=== PATIENT | female | born 1950 | race Caucasian/White ===

== ENCOUNTER 2023-02-06 10:38 | Emergency (ER) | payer MEDICARE, SELFPAY ==
[2023-02-06 10:39] VITALS: BP 191/81; PULSE 101; RESP 18; TEMP 35.9; O2SAT 97; BMI 27.1
--- NOTE | 2023-02-06 10:56 | EKG12_ITS ---
Test Reason : Blood Pressure : / mmHG Vent. Rate : 080 BPM Atrial Rate : 080 BPM P-R Int : 142 ms QRS Dur : 072 ms QT Int : 356 ms P-R-T Axes : 060 054 055 degrees QTc Int : 410 ms Normal sinus rhythm Normal ECG Confirmed by HADLEY WILLINGHAM, ADIN ([id number]), technical editor ANTONIO OSORIO ([id number]) on 02/08/2023 8:09:42 AM Referred By: PATRICIA Confirmed By:ADIN BUTCHER MD
--- NOTE | 2023-02-06 10:56 | RAD_ITS ---
EXAM: XR CHEST, 1 VIEW CLINICAL INDICATION: chest pain TECHNIQUE: Frontal view of the chest. COMPARISON: No relevant prior studies available. FINDINGS: LUNGS AND PLEURAL SPACES: Unremarkable. No consolidation or edema. No pneumothorax. No effusion. HEART: Unremarkable. Cardiac silhouette not enlarged. MEDIASTINUM: Central airways and mediastinal contour are unremarkable. BONES/JOINTS: Unremarkable. SOFT TISSUES: Unremarkable. RAD/Chest 1 View (Portable) IMPRESSION: No radiographic evidence of acute cardiopulmonary disease. Electronically Signed: Reji Joy MD at 12:43 EDT ,
[2023-02-06 10:57] VITALS: BP 167/71; PULSE 85; RESP 16; O2SAT 99
--- NOTE | 2023-02-06 10:58 | EDS_ITS ---
HPI History of Present Illness Chief Complaint: Chest Pain Narrative Narrative: Patient is a 72-year-old female who is presenting to the ER today with chief complaint of chest pain. Patient's chest pain started at 6 AM. Patient is having seconds of a twinge in her right aspect of her left breast above her left ribs. Patient states this has been having intermittently through the morning. Patient was at denominational and was happening again. Patient was brought to the ER by another churchgoer/friend. Patient has no cardiac history. Patient takes Actonel once a week and a statin daily, otherwise has no cardiac history, no diabetes. HEART score 3 for age and cholesterol PFSH PFSH Allergy/AdvReac Type Severity Reaction Status Date / Time latex Allergy Rash Verified 02/06/23 10:41 Iodinated Contrast Media AdvReac Other Verified 02/06/23 10:41 Social History Smoking Status: Never smoker ROS ROS ED ROS Narrative REVIEW OF SYSTEMS: Unless otherwise stated in this report the patient's positive and negative responses for review of systems for constitutional, eyes, ENT, cardiovascular, respiratory, gastrointestinal, neurological, , musculoskeletal, and integument systems and related systems to the presenting problem are either stated in the history of present illness or were not pertinent or were negative for the symptoms and/or complaints related to the presenting medical problem. EXAM Physical Exam Narrative Exam Narrative: Vital signs reviewed and patient is not hypoxic. General: The patient appears well and in no apparent distress. Patient is resting comfortably on cart. Not toxic, lethargic, or listless. Skin: Warm, dry, no pallor noted. There is no rash noted. Head: Normocephalic, atraumatic Eye: Normal conjunctiva, no drainage, EOMI. PERRL. Ears, Nose, Mouth, and Throat: oral mucosa is moist. Nares patent. Mouth without vesicles. Ear canals patent. Tm's without Erythema Cardiovascular: Regular Rate and Rhythm, no murmurs, gallops, or rubs. Patient has reproducible tenderness palpation underneath the left breast on the anterior left lower anterior chest wall, no rash. Patient also has some discomfort to the soft tissue of the posterior underneath aspect of the left breast, no mass palpated in the left breast. Respiratory: Patient is in no distress, no accessory muscle use, lungs are clear to auscultation, no wheezing, rales or rhonchi Back: non-tender, no CVA tenderness bilaterally to percussion. NO CTLS midline or paracervical tenderness to palpation. GI: Soft, no tenderness to palpation, no masses appreciated. No rebound, guarding, or rigidity noted. Musculoskeletal: The patient has full range of motion of all extremities and joints with no difficulty. Patient has no motor, no sensory deficits. Neurological: A&O x4, normal speech, no focal neurological deficits. Psychiatric: Cooperative Const Vital Signs: 02/06/23 10:39 02/06/23 10:57 02/06/23 10:57 Temperature 96.7 F L Temperature Source Temporal Pulse Rate 101 H 85 Respiratory Rate 18 16 Respiratory Effort Normal Blood Pressure 191/81 H 167/71 H Blood Pressure Mean 117 103 Pulse Ox 97 99 Oxygen Delivery Method Room Air Room Air 02/06/23 10:59 02/06/23 11:39 02/06/23 12:00 Temperature Temperature Source Pulse Rate 77 67 Respiratory Rate 18 16 Respiratory Effort Blood Pressure 151/76 H 134/78 H Blood Pressure Mean 101 96 Pulse Ox 97 100 Oxygen Delivery Method Room Air Room Air Room Air [facility] MDM Lab Data Attestation: I reviewed the patient's lab results. Labs: Laboratory Results - last 24 hr 02/06/23 02/06/23 02/06/23 11:26 11:26 12:53 WBC 5.0 RBC 4.25 Hgb 12.5 Hct 38.2 MCV 89.9 MCH 29.4 MCHC 32.7 RDW Std Deviation 42.3 RDW Coeff of Suresh 12.9 Plt Count 201 MPV 9.1 Immature Gran % (Auto) 0.200 Neut % (Auto) 58.2 Lymph % (Auto) 28.8 Bland % (Auto) 10.8 H Eos % (Auto) 1.8 Baso % (Auto) 0.2 Absolute Neuts (auto) 2.9 Absolute Lymphs (auto) 1.44 Nucleated RBC % 0 Sodium 139 Potassium 3.9 Chloride 108 H Carbon Dioxide 26.0 Anion Gap 5 BUN 15 Creatinine 0.75 Estim Creat Clear Calc 38.94 Est GFR (MDRD) Af Amer 98 Est GFR (MDRD) Non-Af 81 BUN/Creatinine Ratio 20.1 H Glucose 102 Calcium 9.1 Magnesium 2.2 Troponin I High Sens 4 4 Lipase 38 Radiography Chest X-Ray - ED: Read by ED Physician (Chest x-ray shows no acute cardiopulmonary disease, no infiltrate, no effusion.) Diagnostic Testing: Clinical Impression(s) from Imaging Studies Chest X-Ray 02/06/23 10:56 IMPRESSION: No radiographic evidence of acute cardiopulmonary disease. Electronically Signed: Reji Joy MD at 12:43 EDT Reading Location ID and State: [address] [place] [address] , Service support , EKG Initial EKG: Attestation: I personally reviewed and interpreted this EKG as follows: Comments: EKG #1 normal sinus rhythm at 80 beats a minute. Normal axis deviation. No acute ST elevation, no acute ectopy. QTc of 410. Treatment and Re-Evaluation :: Patient chest x-ray shows no acute cardiopulmonary disease. Patient's lab work shows no acute etiology. Patient had 2 separate troponins that were negative. Patient did have a 325 mg aspirin prior to arrival. Patient has a heart score of 3. Patient will be discharged and follow-up with PCP for further outpatient testing as indicated. No questions at discharge Discharge Plan Triage Chief Complaint: Chest Pain ED Provider: Jaden Witt Dx/Rx/DC Orders Instructions: Chest Pain [facility] Primary Care Provider: Kimo Burger Referrals: Kimo Burger MD [Primary Care Provider] - Activity Restrictions/Additional Instructions: Follow-up with PCP if you continue having intermittent left-sided chest pain for outpatient stress test and echocardiogram as indicated. If you have heavy heavy pressure, significant shortness of breath, nausea and vomiting, extremely sweaty, or any other acute concerns, please return back to the ER. Disposition Disposition: Home, Self Care
[2023-02-06] MEDS: 0.9% Normal Saline 1,000 ML 150 ML IV (11:16)
[2023-02-06 11:31] LABS: Absolute Lymphocyte Count 1.44 X10^3/uL (0.83-4.51); Absolute Neutrophil Count 2.9 X10^3/uL (2.0-7.7); Basophil# 0.01 X10^3/uL; Basophil% 0.2 % (0-1); Eosinophil# 0.09 X10^3/uL; Eosinophils% 1.8 % (0-5); Hematocrit 38.2 % (37-47); Hemoglobin 12.5 g/dL (12.0-15.0); Lymphocyte # 1.44 X10^3/ul (0.83-4.51); Lymphocyte % 28.8 % (19-41); Mean Corp Hgb Conc 32.7 g/dL (32-36); Mean Corpuscular Hgb 29.4 pg (27.0-32.0); Mean Corpuscular Volume 89.9 fL (81-99); Mean Platelet Vol. 9.1 fl (6.2-12.0); Monocyte# 0.54 X10^3/uL; Monocyte% 10.8 % (0-10); NRBC Flagged by Analyzer 0 % (0-5); Neutrophil # 2.91 X10^3/uL (2.7-7.7); Neutrophil % 58.2 % (47-70); Platelet Count 201 K/mm3 (150-450); RBC Distribution Width CV 12.9 % (11.6-14.6); RBC Distribution Width SD 42.3 fl (35.1-43.9); Red Blood Count 4.25 M/mm3 (4.2-5.4)
[2023-02-06 11:39] VITALS: BP 151/76; PULSE 77; RESP 18; O2SAT 97
[2023-02-06 11:56] LABS: Anion Gap 5 (5-15); BUN 15 mg/dL (7-18); BUN/Creat Ratio 20.1 RATIO (10-20); Calcium,Total 9.1 mg/dL (8.5-10.1); Chloride 108 mmol/L (98-107); Creatinine, Serum 0.75 mg/dL (0.55-1.02); EST Glomerular Filtration Rate 81 mL/min (>60); Est Glom Filt Rate - Afr Amer 98 mL/min (>60); Estimated Creatinine Clearance 38.94 ml/min; Glucose 102 mg/dL (74-106); Lipase 38 U/L (13-75); Magnesium 2.2 mg/dL (1.6-2.6); Potassium 3.9 mmol/L (3.5-5.1); Sodium Level 139 mmol/L (136-145); Troponin-I HS (w/2H Reflex) 4 pg/mL (3.0-54.0)
[2023-02-06 12:00] VITALS: BP 134/78; PULSE 67; RESP 16; O2SAT 100
[2023-02-06 13:20] LABS: Troponin-I HS 4 pg/mL (3.0-54.0)
[2023-02-06 13:29] LABS: Reflex Troponin-HS? (from REC) Y
[2023-02-06 13:33] VITALS: BP 135/70; PULSE 62; RESP 15; O2SAT 97
== END 2023-02-06 13:35 | disposition home or self-care (01) ==
PROVIDERS: Emergency Provider Emergency Medicine; PCP Family Medicine; Visit Provider Emergency Medicine
DX: R07.9 Chest pain, unspecified (principal)
CPT/HCPCS: 71045; 80048; 83690; 83735; 84484; 85025; 93005; 96360; 96361; 99285

== ENCOUNTER → 2023-02-25 | Outpatient (CLI) | payer MEDICARE, SELFPAY ==
--- NOTE | 2023-02-25 12:21 | ECHOD_ITS ---
Reason For Study: Chest Pain Procedure This was a 2D Doppler, Color Flow transthoracic echocardiogram. Exam performed in department. Left Ventricle Normal LV size. Left ventricular systolic function is normal. The estimated ejection fraction is 60 %. Stage 1 diastolic dysfunction. No regional wall motion abnormalities noted. Right Ventricle Normal RV size. Normal systolic function. Atria Normal left atrium. Normal right atrium. Bubble contrast study negative for right to left interatrial shunt. Tricuspid Valve Normal tricuspid valve. Mild tricuspid valve insufficiency. Pulmonary artery systolic pressure is 20 mmHg. Aortic Valve Trisinus/trileaflet aortic valve. Pulmonic Valve Normal pulmonic valve. Great Vessels Normal aortic root. The pulmonary artery is normal size. Normal inferior vena cava. Pericardium/Pleural No pericardial effusion. Medication Performed a rapid injection of agitated mix of 9 cc saline and 1cc air to assess for atrial septal defect. MMode/2D Measurements & Calculations LVIDd: 3.1 cm IVSd: 0.94 cm Ao root diam: 3.4 cm LVIDs: 2.3 cm LVPWd: 0.90 cm RVDd: 2.5 cm FS: 26.2 % LAV(MOD-bp): 13.5 ml LVAd ap4: 16.3 cm2 SV(MOD-sp4): 22.5 ml LAV(MOD-bp) Indexed: 8.7 ml/m2 LVLd ap4: 6.2 cm LAV(MOD-sp2): 15.3 ml EDV(MOD-sp4): 35.4 ml LAV(MOD-sp4): 10.9 ml EDV(sp4-el): 36.5 ml LVAs ap4: 9.2 cm2 LVLs ap4: 5.4 cm ESV(MOD-sp4): 13.0 ml ESV(sp4-el): 13.3 ml EF(MOD-sp4): 63.4 % EF(sp4-el): 63.7 % SV(sp4-el): 23.3 ml LA A4 area: 6.7 cm2 LA dimension(2D): 2.8 cm RA A4 area: 6.7 cm2 Time Measurements MV dec time: 0.30 sec Doppler Measurements & Calculations MV E max yinka: 39.4 cm/sec Lat Peak E' Yinka: 6.4 cm/sec Med Peak E' Yinka: 4.0 cm/sec MV A max yinka: 64.2 cm/sec E/E' lat: 6.2 E/E' med: 9.8 MV E/A: 0.61 Ao V2 max: 97.5 cm/sec AI max yinka: 431.6 cm/sec MV dec slope: 129.6 cm/sec2 Ao max P.8 mmHg AI max P.5 mmHg Ao V2 mean: 77.4 cm/sec Ao mean P.5 mmHg AI dec slope: 234.0 cm/sec2 Ao V2 VTI: 18.3 cm AI P1/2t: 540.4 msec LV V1 max: 85.6 cm/sec PA V2 max: 70.1 cm/sec TR max yinka: 204.7 cm/sec LV V1 max P.9 mmHg TR max P.8 mmHg ECHO/Echo Complete Interpretation Summary Normal LV size. Left ventricular systolic function is normal. The estimated ejection fraction is 60 %. Stage 1 diastolic dysfunction. Pulmonary artery systolic pressure is 20 mmHg. Bubble contrast study negative for right to left interatrial shunt. Ordering Physician: Dale Burger Referring Physician: Dale Burger Performed By: Dana Dumas, STEPHANIE, RVT
--- NOTE | 2023-02-25 17:21 | STRESSREP ---
Stress Test Report Exercise stress test. 72-year-old lady with a history of chest pain Stress protocol: Resting EKG demonstrates normal sinus rhythm with a rate of 85 bpm resting blood pressure is 130/72 mmHg. The patient exercised according to the regular [place] protocol for a total duration of 7 minutes attaining a maximum heart rate of 173 bpm which was 116% of maximum predicted heart rate; the maximum workload was 10.1 metabolic equivalents. At rest there were no ST or T wave changes noted to suggest ischemia and at peak exercise upsloping ST changes only were noted which did not meet the criteria for ischemia. No clinical angina was noted the test was terminated due to the target heart rate being achieved/fatigue. The peak blood pressure was 184/68 mmHg. Rate-pressure product was 27,200. Conclusion: Stress test with no EKG changes for ischemia at a high workload Good functional aerobic capacity.
== END | disposition home or self-care (01) ==
LOC: CVS 12:19
PROVIDERS: PCP Family Medicine; Referring Provider Family Medicine; Visit Provider Family Medicine
DX: R07.9 Chest pain, unspecified (principal)
CPT/HCPCS: 93017; 93306; A4216